=== PATIENT | male | born 1960 | race Caucasian/White ===

== ENCOUNTER 2017-01-13 07:41 | Day surgery (SDC) | payer BC ==
[~2017-01-13] VITALS: Ht 188 cm; Wt 106.1 kg
[~2017-01-13 07:41] MED LIST: NO HOME MEDICATIONS
[2017-01-13 08:20] VITALS: BP 135/91; PULSE 96; TEMP 97
[2017-01-13 09:48] VITALS: BP 134/88; PULSE 72; TEMP 97.7
[2017-01-13 10:00] VITALS: BP 114/81; PULSE 64
[2017-01-13 10:21] VITALS: BP 121/81; PULSE 58
[2017-01-13 11:15] VITALS: BP 118/65; PULSE 63
== END 2017-01-13 10:45 | disposition home or self-care (01) ==
LOC: SDCO 07:41
DX: Z12.11 Encounter for screening for malignant neoplasm of colon (principal); D12.3 Benign neoplasm of transverse colon; K63.5 Polyp of colon; K64.0 First degree hemorrhoids
CPT/HCPCS: OP; J2250; J3010; J7030